=== PATIENT | female | born 1935 | race Caucasian/White ===

== ENCOUNTER → 2016-11-06 | Outpatient (CLI) | payer MEDICARE, OTHER ==
[~2016-11-06] MED LIST: ALDACTONE25 MG; ALPR.25T; AMLO5TAB5 PO; APIX2.5T PO; ARTHROTEC; ASP325T PO; ASP81CT PO; ASPI-266 PO; ATOR20TA66 PO; ATOR40TA PO; BISO1TAB41; CALC10009 PO; CALCIUM 1000 MG PO; CARB1TAB2; CARB1TAB22 PO; CARB1TAB7 PO; CEFD300C3 PO; CELE400C PO; CHOL100061 PO; CHOL200025 PO; CHOL5000 PO; CLCX200C PO; CLOP75TA PO; CLPD75T PO; DABI150C2 PO; DIGO125T PO; DIGO250T PO; DONE10TA41 PO; DULO30CA; DYRENIUM; ESCT10T; EST.625T; FRSM40T PO; FURO40TA4 PO; FURO80TA3 PO; HYDROCODONE PO; IPRA3AMP11 INH; KCL10CCR; KCL10CCR PO; LORA-794 PO; LORA0.5T PO; MAGN400T6 PO; MELATONIN 300MCG PO; MEMA10TA22 PO; METO-333 PO; MGX400T PO; MILN50TA6 PO; MTF500T PO; MTL2.5T PO; MULT-608 PO; MULT1TAB53 PO; NF-ROP5T PO; OMEG1CAP58 PO; OMEP-10 PO; OMEP20CA12 PO; OMEP20CA6 PO; OMEP40CA36 PO; OMG1KC PO; ONDA2VIA IV; PANT40VI3 IV; PGLT30T PO; PIOG45TA PO; PNT40TEC; POTA10TA6 PO; PRCD5U PO; PROP-33 PO; PULMICORT; QUET25TA33 PO; QUET25TA73 PO; REQUIP; RISE30TA PO; RIVA20TA PO; ROPI5TAB PO; ROPI6TAB PO; RPN.25T; SAVELLA PO; SCR1T1; SIMV40TA2 PO; SOLI5TAB4 PO; SPIR25TA3 PO; Sodium Chloride IV; TEMAZEPAM PO; TRAM50TA2 PO; TRIAMTERENE/HCTZ; VITA1CAP59 PO; VITA1TAB98 PO; VYTORIN; WARF4TAB PO; WRF2T PO; [UNRECOGNIZED DRUG - CODE] PO; [UNRECOGNIZED DRUG - REMARK] PO
--- NOTE | 2016-11-06 12:24 | Diagnostic Imaging Report ---
PROCEDURE: CT head without contrast. TECHNIQUE: Multiple contiguous axial images were obtained through the brain without the use of intravenous contrast. INDICATION: Headache. COMPARISON: 02/25/11. FINDINGS: There is no intracranial hemorrhage, edema or mass effect. There is periventricular and deep white matter hypodensities compatible with chronic microvascular ischemic changes. No hydrocephalus. No extra-axial fluid collection seen. The calvarium, the paranasal sinuses and orbits appear grossly unremarkable. IMPRESSION: No intracranial hemorrhage. White matter findings are likely related to chronic microvascular ischemic changes. Dictated by: Dictated on workstation # [id number]
== END ==
LOC: RAD 10:00
DX: R51 Headache (principal)
CPT/HCPCS: 70450

== ENCOUNTER → 2016-11-11 | Outpatient (CLI) | payer MEDICARE, OTHER ==
--- NOTE | 2016-11-11 15:36 | Diagnostic Imaging Report ---
Three views of the lumbar spine. INDICATION: Repeated falls. FINDINGS: There is posterior fusion in the lumbar spine involving L2-S1 levels. There is an age indeterminate mild depressed fracture of the superior endplate of L2 vertebral body favored to be chronic. No definite acute compression fracture seen. Significant disc degenerative changes at T12/L1 and L1/L2 is seen with the endplate sclerosis and the mild to moderate disc height loss. There is suggestion of laminectomy around the lower lumbar spine levels. No posterior osteophytes are seen. Multilevel anterior osteophytes noted. There is an IVC filter seen. IMPRESSION: Depression of the superior endplate of L2 level is probably related to prior injury of indeterminate age. Prominent upper lumbar spine disc degenerative changes. Dictated by: Dictated on workstation # [id number]
--- NOTE | 2016-11-11 18:59 | Diagnostic Imaging Report ---
EXAMINATION: Multiple views of the skull. INDICATION: Repeated falls. FINDINGS: There is no definite skull fracture identified. The visualized paranasal sinuses appear aerated. IMPRESSION: No definite skull fracture seen. Dictated by: Dictated on workstation # [id number]
== END ==
LOC: RAD 14:17
DX: M51.36 Other intervertebral disc degeneration, lumbar region (principal); R29.6 Repeated falls
CPT/HCPCS: 70250; 72100